=== PATIENT | male | born 1955 | race Caucasian/White ===

== ENCOUNTER 2022-03-11 23:15 | Inpatient (IN) | payer MEDICARE ==
[~2022-03-11] VITALS: Ht 170.2 cm; Wt 84.0 kg
[~2022-03-11 23:15] MED LIST: BUPR-50 PO; DOXY-354 PO; FAMO20 PO; QUET100T PO; QUET200T PO; QUET200T30 PO; SERT-158 PO; SERT-439 PO
[2022-03-11 23:30] VITALS: BP 121/86
[2022-03-11 23:59] VITALS: BP 121/86
[2022-03-12] MEDS ORDERED: OLANZapine 5 MG TABLET PO PRN
[2022-03-12] MEDS ORDERED: ACETAMINOPHEN 325 MG TABLET PO PRN (06:45)
[2022-03-12] MEDS ORDERED: LOPERAMIDE HCL 2 MG CAPSULE PO PRN (06:45)
[2022-03-12] MEDS ORDERED: MAGNESIUM HYDROXIDE SUSPENSION 30 ML UDCUP PO PRN (07:30)
[2022-03-12] MEDS ORDERED: HydrOXYzine PAMOATE 50 MG CAPSULE PO PRN (07:30)
[2022-03-12] MEDS ORDERED: GuaiFENesin/D-METHORPHAN [SUGAR-FREE] 200-20MG/10 ML SYRUP UDCUP PO PRN (07:30)
[2022-03-12] MEDS ORDERED: MAG HYDROX/AL HYDROX/SIMETH ES 30 ML SUSPENSION UDCUP PO PRN (07:30)
[2022-03-12] MEDS ORDERED: TUBERCULIN, PURIFIED PROTEIN DERIVATIVE 5 TU/0.1 ML SYRINGE ID ONE (07:30)
[2022-03-12] MEDS ORDERED: PROMETHAZINE HCL 25 MG TABLET PO PRN (07:30)
[2022-03-12] MEDS ORDERED: QUEtiapine FUMARATE 100 MG TABLET PO PRN (08:00)
[2022-03-12] MEDS: MULTIVITAMINS WITH MINERALS, THERAPEUTIC TABLET PO SCH ×2 (08:29→09:00)
[2022-03-12] MEDS: BuPROPion HCL 75 MG TABLET PO SCH ×2 (08:29→09:00)
[2022-03-12] MEDS: THIAMINE 100 MG TABLET PO SCH ×3 (08:29→17:00)
[2022-03-12] MEDS: NALTREXONE HCL 50 MG TABLET PO SCH ×2 (08:30→09:00)
[2022-03-12] MEDS: OMEGA-3/DHA/EPA/FISH OIL 1,000 MG CAPSULE PO SCH ×2 (08:30→09:00)
[2022-03-12] MEDS: DOXYCYCLINE HYCLATE 100 MG TABLET PO SCH ×3 (08:30→17:00)
[2022-03-12] MEDS: FOLIC ACID 1 MG TABLET PO SCH ×2 (08:30→09:00)
[2022-03-12] MEDS: FAMOTIDINE 20 MG TABLET PO SCH ×3 (08:30→17:00)
[2022-03-12 09:41] VITALS: BP 105/65
[2022-03-12] MEDS: LOPERAMIDE HCL 2 MG CAPSULE PO SCH ×2 (12:14→17:00)
[2022-03-12] MEDS ORDERED: PEG 3350/NA SULF,BICARB,CL/KCL 4000 ML SOLUTION PO SCH (15:30)
[2022-03-12] MEDS ORDERED: PEG 3350/NA SULF,BICARB,CL/KCL 4000 ML SOLUTION PO ONE ×2 (15:45→16:30)
[2022-03-12 16:25] VITALS: BP 95/64
[2022-03-12] MEDS: MELATONIN 5 MG TABLET PO SCH (20:37)
[2022-03-12] MEDS: QUEtiapine FUMARATE 200 MG TABLET PO SCH (20:38)
[2022-03-12] MEDS ORDERED: QUEtiapine FUMARATE 100 MG TABLET PO SCH (21:00)
[2022-03-12] MEDS ORDERED: OLANZapine 5 MG RAPDIS TABLET PO SCH (21:00)
[2022-03-13 07:56] LABS: HEMOGLOBIN A1C 5.6 % (3.8-5.6)
[2022-03-13 08:21] LABS: CHOL/HDL RATIO 3.9 (4.2-7.3); FREE T4 (FREE THYROXINE) 0.9 ng/dL (0.76-1.46); THYROID STIMULATING HORMONE 0.99 uIU/mL (0.36-3.74)
[2022-03-13] MEDS: FOLIC ACID 1 MG TABLET PO SCH (09:36)
[2022-03-13] MEDS: DOXYCYCLINE HYCLATE 100 MG TABLET PO SCH ×2 (09:36→16:03)
[2022-03-13] MEDS: MULTIVITAMINS WITH MINERALS, THERAPEUTIC TABLET PO SCH (09:36)
[2022-03-13] MEDS: OMEGA-3/DHA/EPA/FISH OIL 1,000 MG CAPSULE PO SCH (09:36)
[2022-03-13] MEDS: NALTREXONE HCL 50 MG TABLET PO SCH (09:37)
[2022-03-13] MEDS: BuPROPion HCL 75 MG TABLET PO SCH (09:37)
[2022-03-13] MEDS: THIAMINE 100 MG TABLET PO SCH ×2 (09:37→16:03)
[2022-03-13] MEDS: LOPERAMIDE HCL 2 MG CAPSULE PO SCH ×3 (09:37→16:03)
[2022-03-13] MEDS: FAMOTIDINE 20 MG TABLET PO SCH ×2 (09:37→16:03)
[2022-03-13] MEDS: QUEtiapine FUMARATE 200 MG TABLET PO SCH (20:54)
[2022-03-13] MEDS: MELATONIN 5 MG TABLET PO SCH (20:54)
[2022-03-13] MEDS: ZOLPIDEM TARTRATE 10 MG TABLET PO PRN (21:29)
[2022-03-14 08:58] VITALS: BP 106/74
[2022-03-14] MEDS: FOLIC ACID 1 MG TABLET PO SCH (09:27)
[2022-03-14] MEDS: MULTIVITAMINS WITH MINERALS, THERAPEUTIC TABLET PO SCH (09:27)
[2022-03-14] MEDS: BuPROPion HCL 75 MG TABLET PO SCH (09:27)
[2022-03-14] MEDS: FAMOTIDINE 20 MG TABLET PO SCH ×2 (09:27→17:15)
[2022-03-14] MEDS: OMEGA-3/DHA/EPA/FISH OIL 1,000 MG CAPSULE PO SCH (09:27)
[2022-03-14] MEDS: THIAMINE 100 MG TABLET PO SCH ×2 (09:28→17:15)
[2022-03-14] MEDS: NALTREXONE HCL 50 MG TABLET PO SCH (09:28)
[2022-03-14] MEDS: DOXYCYCLINE HYCLATE 100 MG TABLET PO SCH ×2 (09:28→17:15)
[2022-03-14] MEDS: LOPERAMIDE HCL 2 MG CAPSULE PO SCH ×3 (09:29→17:15)
[2022-03-14 16:00] VITALS: BP 117/61
[2022-03-14] MEDS: ZOLPIDEM TARTRATE 10 MG TABLET PO PRN (20:07)
[2022-03-14] MEDS: MELATONIN 5 MG TABLET PO SCH (20:08)
[2022-03-14] MEDS: QUEtiapine FUMARATE 200 MG TABLET PO SCH (20:08)
[2022-03-15 08:30] VITALS: BP 103/63
[2022-03-15] MEDS: NALTREXONE HCL 50 MG TABLET PO SCH (08:59)
[2022-03-15] MEDS: OMEGA-3/DHA/EPA/FISH OIL 1,000 MG CAPSULE PO SCH (08:59)
[2022-03-15] MEDS: BuPROPion HCL XL 150 MG ER TABLET PO SCH (08:59)
[2022-03-15] MEDS: DOXYCYCLINE HYCLATE 100 MG TABLET PO SCH ×2 (09:00→17:20)
[2022-03-15] MEDS: THIAMINE 100 MG TABLET PO SCH ×2 (09:00→17:20)
[2022-03-15] MEDS: FAMOTIDINE 20 MG TABLET PO SCH ×2 (09:00→17:20)
[2022-03-15] MEDS: FOLIC ACID 1 MG TABLET PO SCH (09:00)
[2022-03-15] MEDS: LOPERAMIDE HCL 2 MG CAPSULE PO SCH ×3 (09:00→17:20)
[2022-03-15] MEDS: MULTIVITAMINS WITH MINERALS, THERAPEUTIC TABLET PO SCH (09:00)
[2022-03-15 16:09] VITALS: BP 119/67
[2022-03-15] MEDS: MELATONIN 5 MG TABLET PO SCH (20:55)
[2022-03-15] MEDS: QUEtiapine FUMARATE 200 MG TABLET PO SCH (20:56)
[2022-03-16] MEDS: FOLIC ACID 1 MG TABLET PO SCH (08:34)
[2022-03-16] MEDS: MULTIVITAMINS WITH MINERALS, THERAPEUTIC TABLET PO SCH (08:34)
[2022-03-16] MEDS: OMEGA-3/DHA/EPA/FISH OIL 1,000 MG CAPSULE PO SCH (08:34)
[2022-03-16] MEDS: LOPERAMIDE HCL 2 MG CAPSULE PO SCH ×3 (08:34→18:19)
[2022-03-16] MEDS: THIAMINE 100 MG TABLET PO SCH ×2 (08:35→18:19)
[2022-03-16] MEDS: FAMOTIDINE 20 MG TABLET PO SCH ×2 (08:35→18:19)
[2022-03-16] MEDS: DOXYCYCLINE HYCLATE 100 MG TABLET PO SCH ×2 (08:35→18:19)
[2022-03-16] MEDS: BuPROPion HCL XL 150 MG ER TABLET PO SCH (08:36)
[2022-03-16] MEDS: NALTREXONE HCL 50 MG TABLET PO SCH (08:36)
[2022-03-16 09:00] VITALS: BP 91/63
[2022-03-16 16:00] VITALS: BP 117/78
[2022-03-16] MEDS: QUEtiapine FUMARATE 200 MG TABLET PO SCH (20:38)
[2022-03-16] MEDS: MELATONIN 5 MG TABLET PO SCH (20:38)
[2022-03-17 06:44] LABS: COVID AG,FIA SOURCE NASAL SWAB
[2022-03-17] MEDS: OMEGA-3/DHA/EPA/FISH OIL 1,000 MG CAPSULE PO SCH (08:57)
[2022-03-17] MEDS: FAMOTIDINE 20 MG TABLET PO SCH ×2 (08:58→16:32)
[2022-03-17] MEDS: BuPROPion HCL XL 150 MG ER TABLET PO SCH (08:58)
[2022-03-17] MEDS: NALTREXONE HCL 50 MG TABLET PO SCH (08:58)
[2022-03-17] MEDS: THIAMINE 100 MG TABLET PO SCH ×2 (08:58→16:32)
[2022-03-17] MEDS: DOXYCYCLINE HYCLATE 100 MG TABLET PO SCH ×2 (08:59→16:32)
[2022-03-17] MEDS: FOLIC ACID 1 MG TABLET PO SCH (08:59)
[2022-03-17] MEDS: MULTIVITAMINS WITH MINERALS, THERAPEUTIC TABLET PO SCH (08:59)
[2022-03-17] MEDS: LOPERAMIDE HCL 2 MG CAPSULE PO SCH ×3 (08:59→16:32)
[2022-03-17 09:22] VITALS: BP 103/71
[2022-03-17 16:00] VITALS: BP 95/58
[2022-03-17 16:30] VITALS: BP 95/58
[2022-03-17] MEDS: MELATONIN 5 MG TABLET PO SCH (20:36)
[2022-03-17] MEDS ORDERED: QUEtiapine FUMARATE 200 MG TABLET PO SCH (21:00)
[2022-03-18 08:00] VITALS: BP 117/68
[2022-03-18] MEDS: FAMOTIDINE 20 MG TABLET PO SCH ×2 (08:20→16:11)
[2022-03-18] MEDS: NALTREXONE HCL 50 MG TABLET PO SCH (08:20)
[2022-03-18] MEDS: DOXYCYCLINE HYCLATE 100 MG TABLET PO SCH ×2 (08:20→16:11)
[2022-03-18] MEDS: BuPROPion HCL XL 150 MG ER TABLET PO SCH (08:20)
[2022-03-18] MEDS: FOLIC ACID 1 MG TABLET PO SCH (08:21)
[2022-03-18] MEDS: THIAMINE 100 MG TABLET PO SCH ×2 (08:21→16:11)
[2022-03-18] MEDS: LOPERAMIDE HCL 2 MG CAPSULE PO SCH ×3 (08:21→16:11)
[2022-03-18] MEDS: OMEGA-3/DHA/EPA/FISH OIL 1,000 MG CAPSULE PO SCH (08:22)
[2022-03-18] MEDS: MULTIVITAMINS WITH MINERALS, THERAPEUTIC TABLET PO SCH (09:01)
[2022-03-18] MEDS: LORazepam 2 MG TABLET PO PRN ×2 (13:06→18:59)
[2022-03-18 16:27] VITALS: BP 117/89
[2022-03-18] MEDS: QUEtiapine FUMARATE 300 MG TABLET PO SCH (20:49)
[2022-03-18] MEDS: MELATONIN 5 MG TABLET PO SCH (20:49)
[2022-03-18] MEDS: ZOLPIDEM TARTRATE 10 MG TABLET PO PRN (20:50)
[2022-03-19 03:40] VITALS: BP 111/82
[2022-03-19] MEDS: LORazepam 2 MG TABLET PO PRN ×4 (03:45→22:00)
[2022-03-19 08:02] VITALS: BP 116/82
[2022-03-19] MEDS: OMEGA-3/DHA/EPA/FISH OIL 1,000 MG CAPSULE PO SCH (09:00)
[2022-03-19] MEDS: LOPERAMIDE HCL 2 MG CAPSULE PO SCH ×3 (09:00→16:48)
[2022-03-19] MEDS: MULTIVITAMINS WITH MINERALS, THERAPEUTIC TABLET PO SCH (09:00)
[2022-03-19] MEDS: NALTREXONE HCL 50 MG TABLET PO SCH (09:00)
[2022-03-19] MEDS: BuPROPion HCL XL 150 MG ER TABLET PO SCH (09:00)
[2022-03-19] MEDS: FAMOTIDINE 20 MG TABLET PO SCH ×2 (09:00→16:48)
[2022-03-19] MEDS: THIAMINE 100 MG TABLET PO SCH ×2 (09:00→16:48)
[2022-03-19] MEDS: FOLIC ACID 1 MG TABLET PO SCH (09:00)
[2022-03-19 17:00] VITALS: BP 114/76
[2022-03-19] MEDS: MELATONIN 5 MG TABLET PO SCH (20:36)
[2022-03-19] MEDS: QUEtiapine FUMARATE 300 MG TABLET PO SCH (20:36)
[2022-03-19] MEDS: ZOLPIDEM TARTRATE 10 MG TABLET PO PRN (22:46)
[2022-03-20 09:00] VITALS: BP 113/67
[2022-03-20] MEDS: LOPERAMIDE HCL 2 MG CAPSULE PO SCH ×3 (09:25→16:49)
[2022-03-20] MEDS: MULTIVITAMINS WITH MINERALS, THERAPEUTIC TABLET PO SCH (09:25)
[2022-03-20] MEDS: THIAMINE 100 MG TABLET PO SCH ×2 (09:25→16:14)
[2022-03-20] MEDS: FAMOTIDINE 20 MG TABLET PO SCH ×2 (09:26→16:14)
[2022-03-20] MEDS: FOLIC ACID 1 MG TABLET PO SCH (09:26)
[2022-03-20] MEDS: OMEGA-3/DHA/EPA/FISH OIL 1,000 MG CAPSULE PO SCH (09:26)
[2022-03-20] MEDS: NALTREXONE HCL 50 MG TABLET PO SCH (09:27)
[2022-03-20] MEDS: BuPROPion HCL XL 150 MG ER TABLET PO SCH (09:27)
[2022-03-20 11:26] VITALS: BP 113/67
[2022-03-20] MEDS: LORazepam 2 MG TABLET PO PRN ×2 (16:43→20:53)
[2022-03-20] MEDS ORDERED: LOPERAMIDE HCL 2 MG CAPSULE PO PRN (17:00)
[2022-03-20] MEDS: MELATONIN 5 MG TABLET PO SCH (20:52)
[2022-03-20] MEDS: QUEtiapine FUMARATE 300 MG TABLET PO SCH (20:53)
[2022-03-20] MEDS: ZOLPIDEM TARTRATE 10 MG TABLET PO PRN (23:48)
[2022-03-21 00:06] VITALS: BP 108/69
[2022-03-21 08:30] VITALS: BP 133/89
[2022-03-21] MEDS: OMEGA-3/DHA/EPA/FISH OIL 1,000 MG CAPSULE PO SCH (09:20)
[2022-03-21] MEDS: BuPROPion HCL XL 150 MG ER TABLET PO SCH (09:20)
[2022-03-21] MEDS: THIAMINE 100 MG TABLET PO SCH ×2 (09:21→16:11)
[2022-03-21] MEDS: FAMOTIDINE 20 MG TABLET PO SCH ×2 (09:22→16:11)
[2022-03-21] MEDS: NALTREXONE HCL 50 MG TABLET PO SCH (09:22)
[2022-03-21] MEDS: FOLIC ACID 1 MG TABLET PO SCH (09:22)
[2022-03-21] MEDS: MULTIVITAMINS WITH MINERALS, THERAPEUTIC TABLET PO SCH (09:24)
[2022-03-21] MEDS: IBUPROFEN 600 MG TABLET PO PRN ×2 (12:52→22:09)
[2022-03-21] MEDS: LORazepam 2 MG TABLET PO PRN (12:52)
[2022-03-21 12:59] VITALS: BP 113/69
[2022-03-21 13:59] VITALS: BP 128/72
[2022-03-21 16:33] VITALS: BP 113/97
[2022-03-21] MEDS: MELATONIN 5 MG TABLET PO SCH (20:16)
[2022-03-21] MEDS: QUEtiapine FUMARATE 300 MG TABLET PO SCH (20:16)
[2022-03-21 22:09] VITALS: BP 122/67
[2022-03-22 08:00] VITALS: BP 106/72
[2022-03-22] MEDS: NALTREXONE HCL 50 MG TABLET PO SCH (08:51)
[2022-03-22] MEDS: OMEGA-3/DHA/EPA/FISH OIL 1,000 MG CAPSULE PO SCH (08:51)
[2022-03-22] MEDS: BuPROPion HCL XL 150 MG ER TABLET PO SCH (08:52)
[2022-03-22] MEDS: MULTIVITAMINS WITH MINERALS, THERAPEUTIC TABLET PO SCH (08:52)
[2022-03-22] MEDS: FAMOTIDINE 20 MG TABLET PO SCH ×2 (08:52→16:50)
[2022-03-22] MEDS: LORazepam 2 MG TABLET PO PRN (15:55)
[2022-03-22 16:13] VITALS: BP 104/67
[2022-03-22 16:15] VITALS: BP 104/67
[2022-03-22] MEDS: MELATONIN 5 MG TABLET PO SCH (20:57)
[2022-03-22] MEDS: QUEtiapine FUMARATE 100 MG TABLET PO SCH (20:58)
[2022-03-22] MEDS: QUEtiapine FUMARATE 300 MG TABLET PO SCH (20:58)
[2022-03-22] MEDS ORDERED: QUEtiapine FUMARATE 100 MG TABLET PO SCH (21:00)
[2022-03-22] MEDS: ZOLPIDEM TARTRATE 10 MG TABLET PO PRN (21:22)
[2022-03-23 06:40] LABS: COVID AG,FIA SOURCE NASAL SWAB
[2022-03-23 08:30] VITALS: BP 95/67
[2022-03-23] MEDS: NALTREXONE HCL 50 MG TABLET PO SCH (09:20)
[2022-03-23] MEDS: OMEGA-3/DHA/EPA/FISH OIL 1,000 MG CAPSULE PO SCH (09:20)
[2022-03-23] MEDS: BuPROPion HCL XL 150 MG ER TABLET PO SCH (09:20)
[2022-03-23] MEDS: FAMOTIDINE 20 MG TABLET PO SCH ×2 (09:20→18:00)
[2022-03-23] MEDS: MULTIVITAMINS WITH MINERALS, THERAPEUTIC TABLET PO SCH (09:21)
[2022-03-23 16:15] VITALS: BP 110/76
[2022-03-23] MEDS: LORazepam 2 MG TABLET PO PRN (18:06)
[2022-03-23] MEDS: MELATONIN 5 MG TABLET PO SCH (20:04)
[2022-03-23] MEDS: QUEtiapine FUMARATE 100 MG TABLET PO SCH (20:04)
[2022-03-23] MEDS: QUEtiapine FUMARATE 300 MG TABLET PO SCH (20:04)
[2022-03-23] MEDS ORDERED: QUEtiapine FUMARATE 200 MG TABLET PO SCH (21:00)
[2022-03-24] MEDS: ZOLPIDEM TARTRATE 10 MG TABLET PO PRN (00:47)
[2022-03-24 08:00] VITALS: BP 97/65
[2022-03-24] MEDS: FAMOTIDINE 20 MG TABLET PO SCH ×2 (09:19→16:29)
[2022-03-24] MEDS: BuPROPion HCL XL 150 MG ER TABLET PO SCH (09:19)
[2022-03-24] MEDS: NALTREXONE HCL 50 MG TABLET PO SCH (09:19)
[2022-03-24] MEDS: OMEGA-3/DHA/EPA/FISH OIL 1,000 MG CAPSULE PO SCH (09:19)
[2022-03-24] MEDS: MULTIVITAMINS WITH MINERALS, THERAPEUTIC TABLET PO SCH (09:21)
[2022-03-24] MEDS: LORazepam 2 MG TABLET PO PRN (12:51)
[2022-03-24 16:00] VITALS: BP 102/68
[2022-03-24 16:31] VITALS: BP 102/68
[2022-03-24] MEDS: MELATONIN 5 MG TABLET PO SCH (20:27)
[2022-03-24] MEDS: TraZODone HCL 100 MG TABLET PO SCH (20:27)
[2022-03-24] MEDS: ZOLPIDEM TARTRATE 10 MG TABLET PO SCH (20:27)
[2022-03-24] MEDS: QUEtiapine FUMARATE 300 MG TABLET PO SCH (20:27)
[2022-03-24] MEDS ORDERED: QUEtiapine FUMARATE 200 MG TABLET PO SCH (21:00)
[2022-03-24] MEDS ORDERED: MIRTAZAPINE 15 MG TABLET PO SCH (21:00)
[2022-03-24 22:30] VITALS: BP 135/60
[2022-03-24] MEDS: IBUPROFEN 600 MG TABLET PO PRN (22:34)
[2022-03-25] MEDS: MULTIVITAMINS WITH MINERALS, THERAPEUTIC TABLET PO SCH (08:34)
[2022-03-25] MEDS: NALTREXONE HCL 50 MG TABLET PO SCH (08:35)
[2022-03-25] MEDS: OMEGA-3/DHA/EPA/FISH OIL 1,000 MG CAPSULE PO SCH (08:35)
[2022-03-25] MEDS: BuPROPion HCL XL 150 MG ER TABLET PO SCH (08:35)
[2022-03-25] MEDS: FAMOTIDINE 20 MG TABLET PO SCH ×2 (08:35→16:32)
[2022-03-25 09:26] VITALS: BP 104/69
[2022-03-25 16:08] VITALS: BP 135/62
[2022-03-25] MEDS: LORazepam 2 MG TABLET PO PRN (18:49)
[2022-03-25] MEDS: ZOLPIDEM TARTRATE 10 MG TABLET PO SCH (20:31)
[2022-03-25] MEDS: TraZODone HCL 100 MG TABLET PO SCH (20:32)
[2022-03-25] MEDS: MELATONIN 5 MG TABLET PO SCH (20:32)
[2022-03-25] MEDS: MIRTAZAPINE 15 MG TABLET PO SCH (20:34)
[2022-03-25] MEDS: QUEtiapine FUMARATE 200 MG TABLET PO SCH (20:34)
[2022-03-25] MEDS ORDERED: LURASIDONE HCL 40 MG TABLET PO SCH (21:00)
[2022-03-26] MEDS: FAMOTIDINE 20 MG TABLET PO SCH ×2 (08:16→16:10)
[2022-03-26] MEDS: MULTIVITAMINS WITH MINERALS, THERAPEUTIC TABLET PO SCH (08:16)
[2022-03-26] MEDS: NALTREXONE HCL 50 MG TABLET PO SCH (08:16)
[2022-03-26] MEDS: BuPROPion HCL XL 150 MG ER TABLET PO SCH (08:16)
[2022-03-26] MEDS: OMEGA-3/DHA/EPA/FISH OIL 1,000 MG CAPSULE PO SCH (08:16)
[2022-03-26 09:57] VITALS: BP 90/61
[2022-03-26 16:01] VITALS: BP 106/69
[2022-03-26] MEDS: LORazepam 2 MG TABLET PO PRN (16:10)
[2022-03-26] MEDS ORDERED: ESZOPICLONE 3 MG TABLET PO PRN (17:45)
[2022-03-26] MEDS: TraZODone HCL 100 MG TABLET PO SCH (20:46)
[2022-03-26] MEDS: ZOLPIDEM TARTRATE 10 MG TABLET PO SCH (20:46)
[2022-03-26] MEDS: MELATONIN 5 MG TABLET PO SCH (20:46)
[2022-03-26] MEDS: MIRTAZAPINE 15 MG TABLET PO SCH (20:46)
[2022-03-26] MEDS: QUEtiapine FUMARATE 200 MG TABLET PO SCH (20:47)
[2022-03-27 06:41] LABS: BASOPHILS % (AUTO) 0.5 % (0.0-2.0); EOSINOPHILS % (AUTO) 4.5 % (1.0-6.0); LYMPHOCYTES % (AUTO) 36.6 % (22.0-44.0); MEAN CORPUSCULAR HEMOGLOBIN 30.4 pg (26.0-34.0); MEAN CORPUSCULAR HGB CONC 32.4 G/dL (31.0-37.0); MEAN CORPUSCULAR VOLUME 94 fL (80-100); MONOCYTES # (AUTO) 0.8 K/uL (0.1-1.0); MONOCYTES % (AUTO) 14.5 % (2.0-9.0); NEUTROPHILS # (AUTO) 2.3 K/uL (1.8-7.7); NEUTROPHILS % (AUTO) 43.9 % (40.0-70.0); PLATELET COUNT (AUTO) 233 K/uL (150-450); RED BLOOD CELL COUNT(AUTO) 4.26 MIL/uL (4.50-5.90)
[2022-03-27 08:30] VITALS: BP 103/60
[2022-03-27] MEDS: FAMOTIDINE 20 MG TABLET PO SCH ×2 (08:46→16:17)
[2022-03-27] MEDS: NALTREXONE HCL 50 MG TABLET PO SCH (08:46)
[2022-03-27] MEDS: MULTIVITAMINS WITH MINERALS, THERAPEUTIC TABLET PO SCH (08:46)
[2022-03-27] MEDS: DULoxetine HCL 20 MG CAPSULE PO SCH (08:46)
[2022-03-27] MEDS: OMEGA-3/DHA/EPA/FISH OIL 1,000 MG CAPSULE PO SCH (08:46)
[2022-03-27 16:03] VITALS: BP 137/85
[2022-03-27] MEDS: MELATONIN 5 MG TABLET PO SCH (20:28)
[2022-03-27] MEDS: TraZODone HCL 100 MG TABLET PO SCH (20:28)
[2022-03-27] MEDS: QUEtiapine FUMARATE 200 MG TABLET PO SCH (20:28)
[2022-03-27] MEDS: MIRTAZAPINE 15 MG TABLET PO SCH (20:28)
[2022-03-27] MEDS: ZOLPIDEM TARTRATE 10 MG TABLET PO SCH (20:29)
[2022-03-28] MEDS: OMEGA-3/DHA/EPA/FISH OIL 1,000 MG CAPSULE PO SCH (08:57)
[2022-03-28] MEDS: MULTIVITAMINS WITH MINERALS, THERAPEUTIC TABLET PO SCH (08:57)
[2022-03-28] MEDS: DULoxetine HCL 20 MG CAPSULE PO SCH (08:58)
[2022-03-28] MEDS: NALTREXONE HCL 50 MG TABLET PO SCH (08:58)
[2022-03-28] MEDS: FAMOTIDINE 20 MG TABLET PO SCH ×2 (08:58→17:22)
[2022-03-28] MEDS ORDERED: CloZAPine 25 MG TABLET PO SCH (09:00)
[2022-03-28 10:04] VITALS: BP 96/61
[2022-03-28 16:31] VITALS: BP 110/71
[2022-03-28] MEDS: MELATONIN 5 MG TABLET PO SCH (20:56)
[2022-03-28] MEDS: TraZODone HCL 100 MG TABLET PO SCH (20:56)
[2022-03-28] MEDS: ZOLPIDEM TARTRATE 10 MG TABLET PO SCH (20:57)
[2022-03-28] MEDS: MIRTAZAPINE 15 MG TABLET PO SCH (20:57)
[2022-03-28] MEDS: QUEtiapine FUMARATE 200 MG TABLET PO SCH (20:57)
[2022-03-29 09:00] VITALS: BP 80/52
[2022-03-29] MEDS: OMEGA-3/DHA/EPA/FISH OIL 1,000 MG CAPSULE PO SCH (09:00)
[2022-03-29] MEDS: MULTIVITAMINS WITH MINERALS, THERAPEUTIC TABLET PO SCH (09:00)
[2022-03-29] MEDS: NALTREXONE HCL 50 MG TABLET PO SCH (09:01)
[2022-03-29] MEDS: DULoxetine HCL 20 MG CAPSULE PO SCH (09:01)
[2022-03-29] MEDS: FAMOTIDINE 20 MG TABLET PO SCH ×2 (09:02→16:13)
[2022-03-29] MEDS ORDERED: CloZAPine 25 MG TABLET PO SCH ×3 (14:32→21:00)
[2022-03-29 16:04] VITALS: BP 95/58
[2022-03-29] MEDS: TraZODone HCL 100 MG TABLET PO SCH (20:12)
[2022-03-29] MEDS: MELATONIN 5 MG TABLET PO SCH (20:13)
[2022-03-29] MEDS: QUEtiapine FUMARATE 200 MG TABLET PO SCH (20:13)
[2022-03-29] MEDS: MIRTAZAPINE 15 MG TABLET PO SCH (20:13)
[2022-03-29] MEDS: ZOLPIDEM TARTRATE 10 MG TABLET PO SCH (20:13)
[2022-03-30 07:54] LABS: COVID AG,FIA SOURCE NASAL SWAB
[2022-03-30] MEDS: MULTIVITAMINS WITH MINERALS, THERAPEUTIC TABLET PO SCH (08:19)
[2022-03-30] MEDS: OMEGA-3/DHA/EPA/FISH OIL 1,000 MG CAPSULE PO SCH (08:20)
[2022-03-30] MEDS: NALTREXONE HCL 50 MG TABLET PO SCH (08:21)
[2022-03-30] MEDS: FAMOTIDINE 20 MG TABLET PO SCH ×2 (08:21→16:32)
[2022-03-30] MEDS: DULoxetine HCL 20 MG CAPSULE PO SCH (08:22)
[2022-03-30 09:00] VITALS: BP 93/62
[2022-03-30] MEDS ORDERED: CloZAPine 25 MG TABLET PO SCH ×4 (09:00→21:00)
[2022-03-30 16:16] VITALS: BP 98/63
[2022-03-30] MEDS: ZOLPIDEM TARTRATE 10 MG TABLET PO SCH (21:15)
[2022-03-30] MEDS: QUEtiapine FUMARATE 200 MG TABLET PO SCH (21:16)
[2022-03-30] MEDS: TraZODone HCL 100 MG TABLET PO SCH (21:16)
[2022-03-30] MEDS: MELATONIN 5 MG TABLET PO SCH (21:16)
[2022-03-30] MEDS: SENNA 187 MG TABLET PO SCH (21:17)
[2022-03-30] MEDS: MIRTAZAPINE 15 MG TABLET PO SCH (21:18)
[2022-03-31] MEDS: FAMOTIDINE 20 MG TABLET PO SCH ×2 (08:00→16:30)
[2022-03-31] MEDS: OMEGA-3/DHA/EPA/FISH OIL 1,000 MG CAPSULE PO SCH (08:00)
[2022-03-31] MEDS: DULoxetine HCL 20 MG CAPSULE PO SCH (08:01)
[2022-03-31] MEDS: NALTREXONE HCL 50 MG TABLET PO SCH (08:01)
[2022-03-31] MEDS: MULTIVITAMINS WITH MINERALS, THERAPEUTIC TABLET PO SCH (08:02)
[2022-03-31] MEDS ORDERED: CloZAPine 25 MG TABLET PO SCH ×3 (09:00→21:00)
[2022-03-31 10:18] VITALS: BP 98/60
[2022-03-31 16:25] VITALS: BP 88/60
[2022-03-31] MEDS: MELATONIN 5 MG TABLET PO SCH (20:17)
[2022-03-31] MEDS: ZOLPIDEM TARTRATE 10 MG TABLET PO SCH (20:17)
[2022-03-31] MEDS: TraZODone HCL 100 MG TABLET PO SCH (20:17)
[2022-03-31] MEDS: SENNA 187 MG TABLET PO SCH (20:18)
[2022-03-31] MEDS: MIRTAZAPINE 15 MG TABLET PO SCH (20:18)
[2022-03-31] MEDS: QUEtiapine FUMARATE 200 MG TABLET PO SCH (20:18)
[2022-04-01 08:31] VITALS: BP 108/74
[2022-04-01] MEDS: NALTREXONE HCL 50 MG TABLET PO SCH (08:36)
[2022-04-01] MEDS: DULoxetine HCL 20 MG CAPSULE PO SCH (08:36)
[2022-04-01] MEDS: OMEGA-3/DHA/EPA/FISH OIL 1,000 MG CAPSULE PO SCH (08:36)
[2022-04-01] MEDS: FAMOTIDINE 20 MG TABLET PO SCH ×2 (08:36→16:34)
[2022-04-01] MEDS: MULTIVITAMINS WITH MINERALS, THERAPEUTIC TABLET PO SCH (08:37)
[2022-04-01] MEDS: CloZAPine 25 MG TABLET PO SCH ×2 (08:38→20:40)
[2022-04-01 16:04] VITALS: BP 89/61
[2022-04-01] MEDS: ZOLPIDEM TARTRATE 10 MG TABLET PO SCH (20:38)
[2022-04-01] MEDS: QUEtiapine FUMARATE 100 MG TABLET PO SCH (20:39)
[2022-04-01] MEDS: SENNA 187 MG TABLET PO SCH (20:39)
[2022-04-01] MEDS: TraZODone HCL 100 MG TABLET PO SCH (20:39)
[2022-04-01] MEDS: MELATONIN 5 MG TABLET PO SCH (20:39)
[2022-04-01] MEDS: MIRTAZAPINE 15 MG TABLET PO SCH (20:40)
[2022-04-02 08:40] VITALS: BP 99/69
[2022-04-02] MEDS: MULTIVITAMINS WITH MINERALS, THERAPEUTIC TABLET PO SCH (08:47)
[2022-04-02] MEDS: OMEGA-3/DHA/EPA/FISH OIL 1,000 MG CAPSULE PO SCH (08:47)
[2022-04-02] MEDS: NALTREXONE HCL 50 MG TABLET PO SCH (08:47)
[2022-04-02] MEDS: FAMOTIDINE 20 MG TABLET PO SCH ×2 (08:47→16:35)
[2022-04-02] MEDS: DULoxetine HCL 20 MG CAPSULE PO SCH (08:47)
[2022-04-02] MEDS: CloZAPine 25 MG TABLET PO SCH ×2 (08:48→20:26)
[2022-04-02] MEDS ORDERED: CloZAPine 25 MG TABLET PO SCH (09:00)
[2022-04-02 16:13] VITALS: BP 93/62
[2022-04-02] MEDS: ZOLPIDEM TARTRATE 10 MG TABLET PO SCH (20:26)
[2022-04-02] MEDS: MIRTAZAPINE 15 MG TABLET PO SCH (20:26)
[2022-04-02] MEDS: MELATONIN 5 MG TABLET PO SCH (20:26)
[2022-04-02] MEDS: TraZODone HCL 100 MG TABLET PO SCH (20:26)
[2022-04-02] MEDS: QUEtiapine FUMARATE 100 MG TABLET PO SCH (20:27)
[2022-04-02] MEDS: SENNA 187 MG TABLET PO SCH (20:27)
[2022-04-02] MEDS ORDERED: CloZAPine 100 MG TABLET PO SCH (21:00)
[2022-04-03] VITALS (8 sets, daily range): BP systolic 96–105; BP diastolic 62–71
[2022-04-03 06:23] LABS: BASOPHILS % (AUTO) 0.6 % (0.0-2.0); HEMATOCRIT 41.1 % (41-53); HEMOGLOBIN 13.7 g/dL (13.5-17.5); LYMPHOCYTES # (AUTO) 1.7 K/uL (1.0-4.8); MEAN CORPUSCULAR HEMOGLOBIN 30.9 pg (26.0-34.0); MEAN CORPUSCULAR HGB CONC 33.4 G/dL (31.0-37.0); MEAN CORPUSCULAR VOLUME 93 fL (80-100); MONOCYTES # (AUTO) 0.9 K/uL (0.1-1.0); MONOCYTES % (AUTO) 15.4 % (2.0-9.0); NEUTROPHILS # (AUTO) 2.9 K/uL (1.8-7.7); PLATELET COUNT (AUTO) 191 K/uL (150-450); RED BLOOD CELL COUNT(AUTO) 4.45 MIL/uL (4.50-5.90)
[2022-04-03] MEDS: MULTIVITAMINS WITH MINERALS, THERAPEUTIC TABLET PO SCH (08:19)
[2022-04-03] MEDS: FAMOTIDINE 20 MG TABLET PO SCH ×2 (08:22→16:48)
[2022-04-03] MEDS: OMEGA-3/DHA/EPA/FISH OIL 1,000 MG CAPSULE PO SCH (08:22)
[2022-04-03] MEDS: DULoxetine HCL 30 MG CAPSULE PO SCH (08:23)
[2022-04-03] MEDS: NALTREXONE HCL 50 MG TABLET PO SCH (08:23)
[2022-04-03] MEDS ORDERED: CloZAPine 25 MG TABLET PO SCH ×2 (09:00)
[2022-04-03] MEDS: ZOLPIDEM TARTRATE 10 MG TABLET PO SCH (20:36)
[2022-04-03] MEDS: MIRTAZAPINE 15 MG TABLET PO SCH (20:36)
[2022-04-03] MEDS: SENNA 187 MG TABLET PO SCH (20:37)
[2022-04-03] MEDS: MELATONIN 5 MG TABLET PO SCH (20:37)
[2022-04-03] MEDS: TraZODone HCL 100 MG TABLET PO SCH (20:37)
[2022-04-03] MEDS: QUEtiapine FUMARATE 100 MG TABLET PO SCH (20:37)
[2022-04-03] MEDS ORDERED: CloZAPine 100 MG TABLET PO SCH ×2 (21:00)
[2022-04-04 08:00] VITALS: BP 95/65
[2022-04-04] MEDS: MULTIVITAMINS WITH MINERALS, THERAPEUTIC TABLET PO SCH (08:51)
[2022-04-04] MEDS: FAMOTIDINE 20 MG TABLET PO SCH ×2 (08:52→16:03)
[2022-04-04] MEDS: OMEGA-3/DHA/EPA/FISH OIL 1,000 MG CAPSULE PO SCH (08:52)
[2022-04-04] MEDS: NALTREXONE HCL 50 MG TABLET PO SCH (08:52)
[2022-04-04] MEDS: DULoxetine HCL 30 MG CAPSULE PO SCH (08:53)
[2022-04-04] MEDS ORDERED: CloZAPine 25 MG TABLET PO SCH ×2 (09:00)
[2022-04-04 16:10] VITALS: BP 97/66
[2022-04-04] MEDS: TraZODone HCL 100 MG TABLET PO SCH (20:38)
[2022-04-04] MEDS: MELATONIN 5 MG TABLET PO SCH (20:38)
[2022-04-04] MEDS: ZOLPIDEM TARTRATE 10 MG TABLET PO SCH (20:38)
[2022-04-04] MEDS: MIRTAZAPINE 15 MG TABLET PO SCH (20:39)
[2022-04-04] MEDS: SENNA 187 MG TABLET PO SCH (20:39)
[2022-04-04] MEDS: QUEtiapine FUMARATE 100 MG TABLET PO SCH (20:39)
[2022-04-04] MEDS ORDERED: CloZAPine 100 MG TABLET PO SCH ×2 (21:00)
[2022-04-05 08:00] VITALS: BP 129/94
[2022-04-05] MEDS ORDERED: CloZAPine 25 MG TABLET PO SCH (09:00)
[2022-04-05] MEDS ORDERED: CloZAPine 100 MG TABLET PO SCH ×2 (09:00→21:00)
[2022-04-05] MEDS: OMEGA-3/DHA/EPA/FISH OIL 1,000 MG CAPSULE PO SCH (10:29)
[2022-04-05] MEDS: NALTREXONE HCL 50 MG TABLET PO SCH (10:29)
[2022-04-05] MEDS: FAMOTIDINE 20 MG TABLET PO SCH ×2 (10:29→17:15)
[2022-04-05] MEDS: DULoxetine HCL 30 MG CAPSULE PO SCH (10:29)
[2022-04-05] MEDS: MULTIVITAMINS WITH MINERALS, THERAPEUTIC TABLET PO SCH (10:31)
[2022-04-05 16:00] VITALS: BP 107/65
[2022-04-05] MEDS: ZOLPIDEM TARTRATE 10 MG TABLET PO SCH (20:59)
[2022-04-05] MEDS ORDERED: QUEtiapine FUMARATE 25 MG TABLET PO SCH (21:00)
[2022-04-05] MEDS: TraZODone HCL 100 MG TABLET PO SCH (21:01)
[2022-04-05] MEDS: MIRTAZAPINE 15 MG TABLET PO SCH (21:02)
[2022-04-05] MEDS: MELATONIN 5 MG TABLET PO SCH (21:02)
[2022-04-05] MEDS: SENNA 187 MG TABLET PO SCH (21:03)
[2022-04-06 07:43] LABS: COVID AG,FIA SOURCE NASAL SWAB
[2022-04-06 08:15] VITALS: BP 104/68
[2022-04-06] MEDS: FAMOTIDINE 20 MG TABLET PO SCH ×2 (09:02→17:00)
[2022-04-06] MEDS: NALTREXONE HCL 50 MG TABLET PO SCH (09:03)
[2022-04-06] MEDS: DULoxetine HCL 20 MG CAPSULE PO SCH (09:03)
[2022-04-06] MEDS: OMEGA-3/DHA/EPA/FISH OIL 1,000 MG CAPSULE PO SCH (09:03)
[2022-04-06] MEDS: MULTIVITAMINS WITH MINERALS, THERAPEUTIC TABLET PO SCH (09:13)
[2022-04-06] MEDS: CloZAPine 100 MG TABLET PO SCH ×2 (09:14→20:44)
[2022-04-06 16:00] VITALS: BP 102/66
[2022-04-06] MEDS: ZOLPIDEM TARTRATE 10 MG TABLET PO SCH (20:43)
[2022-04-06] MEDS: MELATONIN 5 MG TABLET PO SCH (20:44)
[2022-04-06] MEDS: TraZODone HCL 100 MG TABLET PO SCH (20:44)
[2022-04-06] MEDS: SENNA 187 MG TABLET PO SCH (20:45)
[2022-04-06] MEDS: MIRTAZAPINE 15 MG TABLET PO SCH (20:45)
[2022-04-07] MEDS: MULTIVITAMINS WITH MINERALS, THERAPEUTIC TABLET PO SCH (08:47)
[2022-04-07] MEDS: CloZAPine 100 MG TABLET PO SCH ×2 (08:47→20:52)
[2022-04-07] MEDS: OMEGA-3/DHA/EPA/FISH OIL 1,000 MG CAPSULE PO SCH (08:48)
[2022-04-07] MEDS: FAMOTIDINE 20 MG TABLET PO SCH ×2 (08:49→16:03)
[2022-04-07] MEDS: NALTREXONE HCL 50 MG TABLET PO SCH (08:49)
[2022-04-07] MEDS: DULoxetine HCL 20 MG CAPSULE PO SCH (08:50)
[2022-04-07 09:00] VITALS: BP 116/69
[2022-04-07] MEDS ORDERED: CloZAPine 25 MG TABLET PO SCH (09:00)
[2022-04-07 16:08] VITALS: BP 107/71
[2022-04-07] MEDS: SENNA 187 MG TABLET PO SCH (20:51)
[2022-04-07] MEDS: ZOLPIDEM TARTRATE 10 MG TABLET PO SCH (20:51)
[2022-04-07] MEDS: MELATONIN 5 MG TABLET PO SCH (20:52)
[2022-04-07] MEDS: TraZODone HCL 100 MG TABLET PO SCH (20:53)
[2022-04-07] MEDS: MIRTAZAPINE 15 MG TABLET PO SCH (20:53)
[2022-04-07] MEDS ORDERED: CloZAPine 100 MG TABLET PO SCH (21:00)
[2022-04-08] MEDS: MULTIVITAMINS WITH MINERALS, THERAPEUTIC TABLET PO SCH (08:42)
[2022-04-08] MEDS: OMEGA-3/DHA/EPA/FISH OIL 1,000 MG CAPSULE PO SCH (08:44)
[2022-04-08] MEDS: FAMOTIDINE 20 MG TABLET PO SCH ×2 (08:45→16:46)
[2022-04-08] MEDS: DULoxetine HCL 20 MG CAPSULE PO SCH (08:46)
[2022-04-08] MEDS: NALTREXONE HCL 50 MG TABLET PO SCH (08:46)
[2022-04-08 09:00] VITALS: BP 81/59
[2022-04-08] MEDS ORDERED: CloZAPine 25 MG TABLET PO SCH ×2 (09:00)
[2022-04-08 16:00] VITALS: BP 98/66
[2022-04-08] MEDS: ZOLPIDEM TARTRATE 10 MG TABLET PO SCH (20:52)
[2022-04-08] MEDS: SENNA 187 MG TABLET PO SCH (20:53)
[2022-04-08] MEDS: TraZODone HCL 100 MG TABLET PO SCH (20:53)
[2022-04-08] MEDS: MELATONIN 5 MG TABLET PO SCH (20:53)
[2022-04-08] MEDS: MIRTAZAPINE 15 MG TABLET PO SCH (20:54)
[2022-04-08] MEDS ORDERED: CloZAPine 100 MG TABLET PO SCH ×2 (21:00)
[2022-04-09 08:40] VITALS: BP 97/62
[2022-04-09] MEDS: FAMOTIDINE 20 MG TABLET PO SCH ×2 (08:46→16:46)
[2022-04-09] MEDS: MULTIVITAMINS WITH MINERALS, THERAPEUTIC TABLET PO SCH (08:46)
[2022-04-09] MEDS: DULoxetine HCL 60 MG CAPSULE PO SCH (08:46)
[2022-04-09] MEDS: OMEGA-3/DHA/EPA/FISH OIL 1,000 MG CAPSULE PO SCH (08:47)
[2022-04-09] MEDS: NALTREXONE HCL 50 MG TABLET PO SCH (08:47)
[2022-04-09] MEDS ORDERED: CloZAPine 100 MG TABLET PO SCH ×3 (09:00→21:00)
[2022-04-09] MEDS ORDERED: CloZAPine 25 MG TABLET PO SCH (09:00)
[2022-04-09 16:00] VITALS: BP 110/79
[2022-04-09] MEDS: ZOLPIDEM TARTRATE 10 MG TABLET PO SCH (20:14)
[2022-04-09] MEDS: SENNA 187 MG TABLET PO SCH (20:14)
[2022-04-09] MEDS: TraZODone HCL 100 MG TABLET PO SCH (20:14)
[2022-04-09] MEDS: MIRTAZAPINE 15 MG TABLET PO SCH (20:15)
[2022-04-09] MEDS: MELATONIN 5 MG TABLET PO SCH (20:16)
[2022-04-10 08:08] LABS: BASOPHILS % (AUTO) 0.7 % (0.0-2.0); EOSINOPHILS % (AUTO) 6.1 % (1.0-6.0); HEMATOCRIT 40.1 % (41-53); HEMOGLOBIN 13.6 g/dL (13.5-17.5); LYMPHOCYTES # (AUTO) 1.8 K/uL (1.0-4.8); LYMPHOCYTES % (AUTO) 35.5 % (22.0-44.0); MEAN CORPUSCULAR HGB CONC 33.9 G/dL (31.0-37.0); MEAN CORPUSCULAR VOLUME 91 fL (80-100); MONOCYTES # (AUTO) 0.7 K/uL (0.1-1.0); MONOCYTES % (AUTO) 13.2 % (2.0-9.0); NEUTROPHILS # (AUTO) 2.3 K/uL (1.8-7.7); NEUTROPHILS % (AUTO) 44.5 % (40.0-70.0); PLATELET COUNT (AUTO) 157 K/uL (150-450); RED BLOOD CELL COUNT(AUTO) 4.38 MIL/uL (4.50-5.90); RED CELL DISTRIBUTION WIDTH 13.9 % (11.5-14.5)
[2022-04-10 09:37] VITALS: BP 106/72
[2022-04-10] MEDS: OMEGA-3/DHA/EPA/FISH OIL 1,000 MG CAPSULE PO SCH (10:06)
[2022-04-10] MEDS: MULTIVITAMINS WITH MINERALS, THERAPEUTIC TABLET PO SCH (10:06)
[2022-04-10] MEDS: NALTREXONE HCL 50 MG TABLET PO SCH (10:06)
[2022-04-10] MEDS: FAMOTIDINE 20 MG TABLET PO SCH ×2 (10:06→16:08)
[2022-04-10] MEDS: DULoxetine HCL 60 MG CAPSULE PO SCH (10:06)
[2022-04-10] MEDS: CloZAPine 100 MG TABLET PO SCH ×2 (10:08→21:51)
[2022-04-10 17:01] VITALS: BP 93/64
[2022-04-10] MEDS: GABAPENTIN 300 MG CAPSULE PO PRN (18:39)
[2022-04-10] MEDS: ZOLPIDEM TARTRATE 10 MG TABLET PO SCH (21:50)
[2022-04-10] MEDS: MELATONIN 5 MG TABLET PO SCH (21:51)
[2022-04-10] MEDS: TraZODone HCL 100 MG TABLET PO SCH (21:51)
[2022-04-10] MEDS: SENNA 187 MG TABLET PO SCH (21:51)
[2022-04-10] MEDS: MIRTAZAPINE 15 MG TABLET PO SCH (21:52)
[2022-04-10 22:24] VITALS: BP 108/76
[2022-04-11 08:00] VITALS: BP 106/71
[2022-04-11] MEDS: DULoxetine HCL 60 MG CAPSULE PO SCH (08:46)
[2022-04-11] MEDS: OMEGA-3/DHA/EPA/FISH OIL 1,000 MG CAPSULE PO SCH (08:46)
[2022-04-11] MEDS: NALTREXONE HCL 50 MG TABLET PO SCH (08:47)
[2022-04-11] MEDS: FAMOTIDINE 20 MG TABLET PO SCH ×2 (08:48→16:04)
[2022-04-11] MEDS: CloZAPine 100 MG TABLET PO SCH ×2 (08:48→20:08)
[2022-04-11] MEDS: MULTIVITAMINS WITH MINERALS, THERAPEUTIC TABLET PO SCH (08:48)
[2022-04-11] MEDS: ZOLPIDEM TARTRATE 10 MG TABLET PO SCH (20:07)
[2022-04-11] MEDS: MELATONIN 5 MG TABLET PO SCH (20:07)
[2022-04-11] MEDS: MIRTAZAPINE 15 MG TABLET PO SCH (20:07)
[2022-04-11] MEDS: TraZODone HCL 100 MG TABLET PO SCH (20:07)
[2022-04-11] MEDS: SENNA 187 MG TABLET PO SCH (20:07)
[2022-04-12] MEDS: NALTREXONE HCL 50 MG TABLET PO SCH (07:48)
[2022-04-12] MEDS: OMEGA-3/DHA/EPA/FISH OIL 1,000 MG CAPSULE PO SCH (07:48)
[2022-04-12] MEDS: DULoxetine HCL 60 MG CAPSULE PO SCH (07:48)
[2022-04-12] MEDS: FAMOTIDINE 20 MG TABLET PO SCH ×2 (07:48→17:27)
[2022-04-12] MEDS: MULTIVITAMINS WITH MINERALS, THERAPEUTIC TABLET PO SCH (07:49)
[2022-04-12] MEDS: CloZAPine 100 MG TABLET PO SCH ×2 (07:50→20:38)
[2022-04-12 08:00] VITALS: BP 109/63
[2022-04-12] MEDS: IBUPROFEN 600 MG TABLET PO PRN (15:49)
[2022-04-12] MEDS: GABAPENTIN 300 MG CAPSULE PO PRN (15:50)
[2022-04-12 16:55] VITALS: BP 119/87
[2022-04-12] MEDS: ZOLPIDEM TARTRATE 10 MG TABLET PO SCH (20:37)
[2022-04-12] MEDS: SENNA 187 MG TABLET PO SCH (20:38)
[2022-04-12] MEDS: MELATONIN 5 MG TABLET PO SCH (20:38)
[2022-04-12] MEDS: MIRTAZAPINE 15 MG TABLET PO SCH (20:38)
[2022-04-12] MEDS: TraZODone HCL 100 MG TABLET PO SCH (20:38)
[2022-04-13] VITALS (8 sets, daily range): BP systolic 107–126; BP diastolic 70–88
[2022-04-13 07:46] LABS: COVID AG,FIA SOURCE NASAL SWAB
[2022-04-13] MEDS: DULoxetine HCL 60 MG CAPSULE PO SCH (08:59)
[2022-04-13] MEDS: OMEGA-3/DHA/EPA/FISH OIL 1,000 MG CAPSULE PO SCH (08:59)
[2022-04-13] MEDS: NALTREXONE HCL 50 MG TABLET PO SCH (08:59)
[2022-04-13] MEDS: FAMOTIDINE 20 MG TABLET PO SCH ×2 (08:59→16:08)
[2022-04-13] MEDS: MULTIVITAMINS WITH MINERALS, THERAPEUTIC TABLET PO SCH (09:00)
[2022-04-13] MEDS: MELATONIN 5 MG TABLET PO SCH (20:24)
[2022-04-13] MEDS: TraZODone HCL 100 MG TABLET PO SCH (20:24)
[2022-04-13] MEDS: MIRTAZAPINE 15 MG TABLET PO SCH (20:25)
[2022-04-13] MEDS: SENNA 187 MG TABLET PO SCH (20:25)
[2022-04-13] MEDS: CloZAPine 100 MG TABLET PO SCH (20:25)
[2022-04-13] MEDS: ZOLPIDEM TARTRATE 10 MG TABLET PO SCH (20:25)
[2022-04-14] VITALS (7 sets, daily range): BP systolic 98–122; BP diastolic 64–82
[2022-04-14] MEDS: DULoxetine HCL 60 MG CAPSULE PO SCH (08:51)
[2022-04-14] MEDS: FAMOTIDINE 20 MG TABLET PO SCH ×2 (08:51→16:14)
[2022-04-14] MEDS: NALTREXONE HCL 50 MG TABLET PO SCH (08:51)
[2022-04-14] MEDS: OMEGA-3/DHA/EPA/FISH OIL 1,000 MG CAPSULE PO SCH (08:51)
[2022-04-14] MEDS: MULTIVITAMINS WITH MINERALS, THERAPEUTIC TABLET PO SCH (08:52)
[2022-04-14] MEDS: GABAPENTIN 300 MG CAPSULE PO PRN (18:15)
[2022-04-14] MEDS: SENNA 187 MG TABLET PO SCH (20:44)
[2022-04-14] MEDS: MIRTAZAPINE 15 MG TABLET PO SCH (20:44)
[2022-04-14] MEDS: CloZAPine 100 MG TABLET PO SCH (20:44)
[2022-04-14] MEDS: ZOLPIDEM TARTRATE 10 MG TABLET PO SCH (20:45)
[2022-04-14] MEDS: TraZODone HCL 100 MG TABLET PO SCH (20:45)
[2022-04-14] MEDS: MELATONIN 5 MG TABLET PO SCH (20:45)
[2022-04-15 08:06] VITALS: BP 107/75
[2022-04-15] MEDS: NALTREXONE HCL 50 MG TABLET PO SCH (08:35)
[2022-04-15] MEDS: FAMOTIDINE 20 MG TABLET PO SCH ×2 (08:35→16:07)
[2022-04-15] MEDS: MULTIVITAMINS WITH MINERALS, THERAPEUTIC TABLET PO SCH (08:35)
[2022-04-15] MEDS: OMEGA-3/DHA/EPA/FISH OIL 1,000 MG CAPSULE PO SCH (08:35)
[2022-04-15] MEDS: DULoxetine HCL 20 MG CAPSULE PO SCH (08:36)
[2022-04-15 16:02] VITALS: BP 102/68
[2022-04-15] MEDS: GABAPENTIN 300 MG CAPSULE PO PRN (18:55)
[2022-04-15] MEDS: ZOLPIDEM TARTRATE 10 MG TABLET PO SCH (20:56)
[2022-04-15] MEDS: CloZAPine 100 MG TABLET PO SCH (20:56)
[2022-04-15] MEDS: SENNA 187 MG TABLET PO SCH (20:56)
[2022-04-15] MEDS: TraZODone HCL 100 MG TABLET PO SCH (20:57)
[2022-04-15] MEDS: MELATONIN 5 MG TABLET PO SCH (20:57)
[2022-04-15] MEDS: MIRTAZAPINE 15 MG TABLET PO SCH (20:57)
[2022-04-16 08:51] VITALS: BP 134/86
[2022-04-16] MEDS: MULTIVITAMINS WITH MINERALS, THERAPEUTIC TABLET PO SCH (09:16)
[2022-04-16] MEDS: NALTREXONE HCL 50 MG TABLET PO SCH (09:16)
[2022-04-16] MEDS: FAMOTIDINE 20 MG TABLET PO SCH ×2 (09:16→16:32)
[2022-04-16] MEDS: DULoxetine HCL 20 MG CAPSULE PO SCH (09:17)
[2022-04-16] MEDS: OMEGA-3/DHA/EPA/FISH OIL 1,000 MG CAPSULE PO SCH (09:17)
[2022-04-16 16:10] VITALS: BP 91/61
[2022-04-16] MEDS: GABAPENTIN 300 MG CAPSULE PO PRN (18:01)
[2022-04-16] MEDS: MIRTAZAPINE 15 MG TABLET PO SCH (20:30)
[2022-04-16] MEDS: SENNA 187 MG TABLET PO SCH (20:30)
[2022-04-16] MEDS: TraZODone HCL 100 MG TABLET PO SCH (20:30)
[2022-04-16] MEDS: ZOLPIDEM TARTRATE 10 MG TABLET PO SCH (20:30)
[2022-04-16] MEDS: MELATONIN 5 MG TABLET PO SCH (20:31)
[2022-04-16] MEDS: CloZAPine 100 MG TABLET PO SCH (20:31)
[2022-04-17 05:59] LABS: BASOPHILS % (AUTO) 0.3 % (0.0-2.0); EOSINOPHILS % (AUTO) 3.7 % (1.0-6.0); HEMATOCRIT 36.9 % (41-53); HEMOGLOBIN 12.4 g/dL (13.5-17.5); LYMPHOCYTES # (AUTO) 1.8 K/uL (1.0-4.8); MEAN CORPUSCULAR HEMOGLOBIN 30.7 pg (26.0-34.0); MEAN CORPUSCULAR HGB CONC 33.7 G/dL (31.0-37.0); MEAN CORPUSCULAR VOLUME 91 fL (80-100); MONOCYTES # (AUTO) 0.8 K/uL (0.1-1.0); MONOCYTES % (AUTO) 10.9 % (2.0-9.0); NEUTROPHILS # (AUTO) 4.6 K/uL (1.8-7.7); NEUTROPHILS % (AUTO) 61.1 % (40.0-70.0); PLATELET COUNT (AUTO) 157 K/uL (150-450); RED BLOOD CELL COUNT(AUTO) 4.05 MIL/uL (4.50-5.90); RED CELL DISTRIBUTION WIDTH 13.5 % (11.5-14.5)
[2022-04-17 09:00] VITALS: BP 142/99
[2022-04-17] MEDS: FAMOTIDINE 20 MG TABLET PO SCH ×2 (09:09→16:09)
[2022-04-17] MEDS: NALTREXONE HCL 50 MG TABLET PO SCH (09:10)
[2022-04-17] MEDS: OMEGA-3/DHA/EPA/FISH OIL 1,000 MG CAPSULE PO SCH (09:10)
[2022-04-17] MEDS: DULoxetine HCL 30 MG CAPSULE PO SCH (09:10)
[2022-04-17] MEDS: MULTIVITAMINS WITH MINERALS, THERAPEUTIC TABLET PO SCH (09:13)
[2022-04-17 18:47] VITALS: BP 98/64
[2022-04-17] MEDS: SENNOSIDES 8.6 MG TABLET PO SCH (20:47)
[2022-04-17] MEDS: MELATONIN 5 MG TABLET PO SCH (20:48)
[2022-04-17] MEDS: MIRTAZAPINE 15 MG TABLET PO SCH (20:48)
[2022-04-17] MEDS: CloZAPine 100 MG TABLET PO SCH (20:48)
[2022-04-17] MEDS: ZOLPIDEM TARTRATE 10 MG TABLET PO SCH (20:48)
[2022-04-17] MEDS: TraZODone HCL 100 MG TABLET PO SCH (20:49)
[2022-04-18 08:31] VITALS: BP 142/102
[2022-04-18] MEDS: FAMOTIDINE 20 MG TABLET PO SCH ×2 (08:41→16:20)
[2022-04-18] MEDS: OMEGA-3/DHA/EPA/FISH OIL 1,000 MG CAPSULE PO SCH (08:41)
[2022-04-18] MEDS: NALTREXONE HCL 50 MG TABLET PO SCH (08:42)
[2022-04-18] MEDS: DULoxetine HCL 30 MG CAPSULE PO SCH (08:42)
[2022-04-18] MEDS: MULTIVITAMINS WITH MINERALS, THERAPEUTIC TABLET PO SCH (08:43)
[2022-04-18 17:10] VITALS: BP 138/88
[2022-04-18] MEDS: SENNOSIDES 8.6 MG TABLET PO SCH (21:10)
[2022-04-18] MEDS: MIRTAZAPINE 15 MG TABLET PO SCH (21:11)
[2022-04-18] MEDS: CloZAPine 100 MG TABLET PO SCH (21:11)
[2022-04-18] MEDS: TraZODone HCL 100 MG TABLET PO SCH (21:11)
[2022-04-18] MEDS: MELATONIN 5 MG TABLET PO SCH (21:13)
[2022-04-18 21:23] VITALS: BP 139/78
[2022-04-19] MEDS: FAMOTIDINE 20 MG TABLET PO SCH ×2 (08:37→16:11)
[2022-04-19] MEDS: MULTIVITAMINS WITH MINERALS, THERAPEUTIC TABLET PO SCH (08:37)
[2022-04-19] MEDS: OMEGA-3/DHA/EPA/FISH OIL 1,000 MG CAPSULE PO SCH (08:37)
[2022-04-19] MEDS: NALTREXONE HCL 50 MG TABLET PO SCH (08:37)
[2022-04-19] MEDS: DULoxetine HCL 30 MG CAPSULE PO SCH (08:37)
[2022-04-19 08:44] VITALS: BP 105/70
[2022-04-19] MEDS: GABAPENTIN 300 MG CAPSULE PO PRN (16:51)
[2022-04-19] MEDS: MIRTAZAPINE 15 MG TABLET PO SCH (21:48)
[2022-04-19] MEDS: SENNOSIDES 8.6 MG TABLET PO SCH (21:49)
[2022-04-19] MEDS: CloZAPine 100 MG TABLET PO SCH (21:49)
[2022-04-19] MEDS: MELATONIN 5 MG TABLET PO SCH (21:49)
[2022-04-20 05:59] LABS: COVID AG,FIA SOURCE NASAL SWAB
[2022-04-20] MEDS: OMEGA-3/DHA/EPA/FISH OIL 1,000 MG CAPSULE PO SCH (08:32)
[2022-04-20] MEDS: MULTIVITAMINS WITH MINERALS, THERAPEUTIC TABLET PO SCH (08:33)
[2022-04-20] MEDS: DULoxetine HCL 30 MG CAPSULE PO SCH (08:33)
[2022-04-20] MEDS: NALTREXONE HCL 50 MG TABLET PO SCH (08:33)
[2022-04-20] MEDS: FAMOTIDINE 20 MG TABLET PO SCH ×2 (08:33→16:08)
[2022-04-20 09:19] VITALS: BP 134/93
[2022-04-20 16:15] VITALS: BP 97/70
[2022-04-20] MEDS: CloZAPine 100 MG TABLET PO SCH (21:00)
[2022-04-20] MEDS: MIRTAZAPINE 15 MG TABLET PO SCH (21:01)
[2022-04-20] MEDS: MELATONIN 5 MG TABLET PO SCH (21:01)
[2022-04-20] MEDS: SENNOSIDES 8.6 MG TABLET PO SCH (21:01)
[2022-04-21 08:25] VITALS: BP 116/75
[2022-04-21] MEDS: MULTIVITAMINS WITH MINERALS, THERAPEUTIC TABLET PO SCH (08:35)
[2022-04-21] MEDS: OMEGA-3/DHA/EPA/FISH OIL 1,000 MG CAPSULE PO SCH (08:36)
[2022-04-21] MEDS: NALTREXONE HCL 50 MG TABLET PO SCH (08:36)
[2022-04-21] MEDS: DULoxetine HCL 30 MG CAPSULE PO SCH (08:36)
[2022-04-21] MEDS: FAMOTIDINE 20 MG TABLET PO SCH ×2 (08:36→16:47)
[2022-04-21 16:21] VITALS: BP 104/73
[2022-04-21] MEDS: SENNOSIDES 8.6 MG TABLET PO SCH (21:01)
[2022-04-21] MEDS: CloZAPine 100 MG TABLET PO SCH (21:01)
[2022-04-21] MEDS: MELATONIN 5 MG TABLET PO SCH (21:01)
[2022-04-21] MEDS: MIRTAZAPINE 15 MG TABLET PO SCH (21:01)
[2022-04-22] MEDS: NALTREXONE HCL 50 MG TABLET PO SCH (08:19)
[2022-04-22] MEDS: FAMOTIDINE 20 MG TABLET PO SCH ×2 (08:19→15:55)
[2022-04-22] MEDS: OMEGA-3/DHA/EPA/FISH OIL 1,000 MG CAPSULE PO SCH (08:19)
[2022-04-22] MEDS: DULoxetine HCL 60 MG CAPSULE PO SCH (08:20)
[2022-04-22] MEDS: MULTIVITAMINS WITH MINERALS, THERAPEUTIC TABLET PO SCH (08:21)
[2022-04-22 09:49] VITALS: BP 104/76
[2022-04-22] MEDS: GABAPENTIN 300 MG CAPSULE PO PRN (15:55)
[2022-04-22 16:52] VITALS: BP 102/71
[2022-04-22] MEDS: CloZAPine 100 MG TABLET PO SCH (20:50)
[2022-04-22] MEDS: MELATONIN 5 MG TABLET PO SCH (20:50)
[2022-04-22] MEDS: SENNOSIDES 8.6 MG TABLET PO SCH (20:51)
[2022-04-22] MEDS: MIRTAZAPINE 15 MG TABLET PO SCH (20:51)
[2022-04-23] MEDS: NALTREXONE HCL 50 MG TABLET PO SCH (08:28)
[2022-04-23] MEDS: DULoxetine HCL 60 MG CAPSULE PO SCH (08:28)
[2022-04-23] MEDS: FAMOTIDINE 20 MG TABLET PO SCH ×2 (08:29→16:11)
[2022-04-23] MEDS: MULTIVITAMINS WITH MINERALS, THERAPEUTIC TABLET PO SCH (08:29)
[2022-04-23] MEDS: OMEGA-3/DHA/EPA/FISH OIL 1,000 MG CAPSULE PO SCH (08:29)
[2022-04-23 08:46] VITALS: BP 108/64
[2022-04-23] MEDS: GABAPENTIN 300 MG CAPSULE PO PRN (13:40)
[2022-04-23] MEDS: CloZAPine 100 MG TABLET PO SCH (20:38)
[2022-04-23] MEDS: MELATONIN 5 MG TABLET PO SCH (20:39)
[2022-04-23] MEDS: MIRTAZAPINE 15 MG TABLET PO SCH (20:39)
[2022-04-23] MEDS: SENNOSIDES 8.6 MG TABLET PO SCH (20:39)
[2022-04-24 07:49] LABS: BASOPHILS % (AUTO) 0.6 % (0.0-2.0); EOSINOPHILS % (AUTO) 7.1 % (1.0-6.0); HEMATOCRIT 37.7 % (41-53); HEMOGLOBIN 12.7 g/dL (13.5-17.5); LYMPHOCYTES % (AUTO) 39.8 % (22.0-44.0); MEAN CORPUSCULAR HEMOGLOBIN 30.7 pg (26.0-34.0); MEAN CORPUSCULAR HGB CONC 33.8 G/dL (31.0-37.0); MEAN CORPUSCULAR VOLUME 91 fL (80-100); MONOCYTES # (AUTO) 0.7 K/uL (0.1-1.0); MONOCYTES % (AUTO) 14.3 % (2.0-9.0); NEUTROPHILS # (AUTO) 1.9 K/uL (1.8-7.7); NEUTROPHILS % (AUTO) 38.2 % (40.0-70.0); PLATELET COUNT (AUTO) 211 K/uL (150-450); RED BLOOD CELL COUNT(AUTO) 4.14 MIL/uL (4.50-5.90); RED CELL DISTRIBUTION WIDTH 13.6 % (11.5-14.5)
[2022-04-24] MEDS: OMEGA-3/DHA/EPA/FISH OIL 1,000 MG CAPSULE PO SCH (08:16)
[2022-04-24] MEDS: NALTREXONE HCL 50 MG TABLET PO SCH (08:17)
[2022-04-24] MEDS: FAMOTIDINE 20 MG TABLET PO SCH ×2 (08:17→17:09)
[2022-04-24] MEDS: DULoxetine HCL 60 MG CAPSULE PO SCH (08:17)
[2022-04-24] MEDS: MULTIVITAMINS WITH MINERALS, THERAPEUTIC TABLET PO SCH (08:18)
[2022-04-24 10:33] VITALS: BP 102/62
[2022-04-24 16:47] VITALS: BP 104/70
[2022-04-24] MEDS: GABAPENTIN 300 MG CAPSULE PO PRN (18:37)
[2022-04-24] MEDS: MELATONIN 5 MG TABLET PO SCH (20:34)
[2022-04-24] MEDS: SENNOSIDES 8.6 MG TABLET PO SCH (20:34)
[2022-04-24] MEDS: CloZAPine 100 MG TABLET PO SCH (20:34)
[2022-04-24] MEDS: MIRTAZAPINE 15 MG TABLET PO SCH (20:34)
[2022-04-25] MEDS: DULoxetine HCL 60 MG CAPSULE PO SCH (09:18)
[2022-04-25] MEDS: FAMOTIDINE 20 MG TABLET PO SCH ×2 (09:19→16:47)
[2022-04-25] MEDS: OMEGA-3/DHA/EPA/FISH OIL 1,000 MG CAPSULE PO SCH (09:19)
[2022-04-25] MEDS: MULTIVITAMINS WITH MINERALS, THERAPEUTIC TABLET PO SCH (09:19)
[2022-04-25] MEDS: NALTREXONE HCL 50 MG TABLET PO SCH (09:19)
[2022-04-25 11:02] VITALS: BP 104/63
[2022-04-25] MEDS: GABAPENTIN 300 MG CAPSULE PO PRN (18:05)
[2022-04-25 18:09] VITALS: BP 102/72
[2022-04-25] MEDS: SENNOSIDES 8.6 MG TABLET PO SCH (20:42)
[2022-04-25] MEDS: CloZAPine 100 MG TABLET PO SCH (20:42)
[2022-04-25] MEDS: MIRTAZAPINE 15 MG TABLET PO SCH (20:42)
[2022-04-25] MEDS: MELATONIN 5 MG TABLET PO SCH (20:42)
[2022-04-26 08:03] VITALS: BP 102/65
[2022-04-26] MEDS: FAMOTIDINE 20 MG TABLET PO SCH ×2 (09:55→17:25)
[2022-04-26] MEDS: OMEGA-3/DHA/EPA/FISH OIL 1,000 MG CAPSULE PO SCH (09:55)
[2022-04-26] MEDS: NALTREXONE HCL 50 MG TABLET PO SCH (09:56)
[2022-04-26] MEDS: DULoxetine HCL 60 MG CAPSULE PO SCH (09:56)
[2022-04-26] MEDS: MULTIVITAMINS WITH MINERALS, THERAPEUTIC TABLET PO SCH (09:58)
[2022-04-26] MEDS: GABAPENTIN 300 MG CAPSULE PO PRN (14:29)
[2022-04-26] MEDS: CloZAPine 100 MG TABLET PO SCH (20:06)
[2022-04-26] MEDS: SENNOSIDES 8.6 MG TABLET PO SCH (20:07)
[2022-04-26] MEDS: MELATONIN 5 MG TABLET PO SCH (20:07)
[2022-04-26] MEDS: MIRTAZAPINE 15 MG TABLET PO SCH (20:07)
[2022-04-27 07:39] LABS: COVID AG,FIA SOURCE NASAL SWAB
[2022-04-27] MEDS: FAMOTIDINE 20 MG TABLET PO SCH ×2 (08:37→16:37)
[2022-04-27] MEDS: OMEGA-3/DHA/EPA/FISH OIL 1,000 MG CAPSULE PO SCH (08:37)
[2022-04-27] MEDS: MULTIVITAMINS WITH MINERALS, THERAPEUTIC TABLET PO SCH (08:37)
[2022-04-27] MEDS: DULoxetine HCL 60 MG CAPSULE PO SCH (08:38)
[2022-04-27] MEDS: NALTREXONE HCL 50 MG TABLET PO SCH (08:38)
[2022-04-27] MEDS: TAMSULOSIN HCL 0.4 MG CAPSULE PO SCH (08:38)
[2022-04-27 10:45] VITALS: BP 107/69
[2022-04-27 16:25] VITALS: BP 116/72
[2022-04-27] MEDS: GABAPENTIN 300 MG CAPSULE PO PRN (16:37)
[2022-04-27] MEDS: CloZAPine 100 MG TABLET PO SCH (20:38)
[2022-04-27] MEDS: MIRTAZAPINE 15 MG TABLET PO SCH (20:39)
[2022-04-27] MEDS: MELATONIN 5 MG TABLET PO SCH (20:39)
[2022-04-27] MEDS: SENNOSIDES 8.6 MG TABLET PO SCH (20:39)
[2022-04-28] MEDS: MULTIVITAMINS WITH MINERALS, THERAPEUTIC TABLET PO SCH (09:13)
[2022-04-28] MEDS: TAMSULOSIN HCL 0.4 MG CAPSULE PO SCH (09:13)
[2022-04-28] MEDS: DULoxetine HCL 60 MG CAPSULE PO SCH (09:13)
[2022-04-28] MEDS: NALTREXONE HCL 50 MG TABLET PO SCH (09:13)
[2022-04-28] MEDS: OMEGA-3/DHA/EPA/FISH OIL 1,000 MG CAPSULE PO SCH (09:14)
[2022-04-28] MEDS: FAMOTIDINE 20 MG TABLET PO SCH ×2 (09:14→16:10)
[2022-04-28 09:21] VITALS: BP 119/84
[2022-04-28] MEDS: GABAPENTIN 300 MG CAPSULE PO PRN (16:09)
[2022-04-28 16:43] VITALS: BP 98/71
[2022-04-28] MEDS: SENNOSIDES 8.6 MG TABLET PO SCH (20:15)
[2022-04-28] MEDS: MELATONIN 5 MG TABLET PO SCH (20:15)
[2022-04-28] MEDS: CloZAPine 100 MG TABLET PO SCH (20:16)
[2022-04-28] MEDS: MIRTAZAPINE 15 MG TABLET PO SCH (20:16)
[2022-04-28 21:07] VITALS: BP 107/73
[2022-04-28] MEDS: ZOLPIDEM TARTRATE 10 MG TABLET PO PRN (22:13)
[2022-04-29] MEDS: TAMSULOSIN HCL 0.4 MG CAPSULE PO SCH (08:32)
[2022-04-29] MEDS: OMEGA-3/DHA/EPA/FISH OIL 1,000 MG CAPSULE PO SCH (08:32)
[2022-04-29] MEDS: FAMOTIDINE 20 MG TABLET PO SCH ×2 (08:33→16:21)
[2022-04-29] MEDS: DULoxetine HCL 60 MG CAPSULE PO SCH (08:33)
[2022-04-29] MEDS: NALTREXONE HCL 50 MG TABLET PO SCH (08:33)
[2022-04-29] MEDS: MULTIVITAMINS WITH MINERALS, THERAPEUTIC TABLET PO SCH (08:33)
[2022-04-29 09:06] VITALS: BP 123/80
[2022-04-29] MEDS: GABAPENTIN 300 MG CAPSULE PO PRN (16:21)
[2022-04-29] MEDS: SENNOSIDES 8.6 MG TABLET PO SCH (20:20)
[2022-04-29] MEDS: CloZAPine 100 MG TABLET PO SCH (20:20)
[2022-04-29] MEDS: MELATONIN 5 MG TABLET PO SCH (20:20)
[2022-04-29] MEDS: MIRTAZAPINE 15 MG TABLET PO SCH (20:20)
[2022-04-29] MEDS: ZOLPIDEM TARTRATE 10 MG TABLET PO PRN (21:16)
[2022-04-30] MEDS: TAMSULOSIN HCL 0.4 MG CAPSULE PO SCH (08:25)
[2022-04-30] MEDS: DULoxetine HCL 60 MG CAPSULE PO SCH (08:25)
[2022-04-30] MEDS: OMEGA-3/DHA/EPA/FISH OIL 1,000 MG CAPSULE PO SCH (08:25)
[2022-04-30] MEDS: FAMOTIDINE 20 MG TABLET PO SCH ×2 (08:26→17:12)
[2022-04-30] MEDS: NALTREXONE HCL 50 MG TABLET PO SCH (08:26)
[2022-04-30] MEDS: MULTIVITAMINS WITH MINERALS, THERAPEUTIC TABLET PO SCH (08:27)
[2022-04-30 09:05] VITALS: BP 106/72
[2022-04-30] MEDS: GABAPENTIN 300 MG CAPSULE PO PRN (13:41)
[2022-04-30 16:31] VITALS: BP 112/73
[2022-04-30] MEDS: CloZAPine 100 MG TABLET PO SCH (20:17)
[2022-04-30] MEDS: MELATONIN 5 MG TABLET PO SCH (20:17)
[2022-04-30] MEDS: SENNOSIDES 8.6 MG TABLET PO SCH (20:18)
[2022-04-30] MEDS: MIRTAZAPINE 15 MG TABLET PO SCH (20:18)
[2022-05-01 07:38] LABS: BASOPHILS % (AUTO) 0.6 % (0.0-2.0); EOSINOPHILS % (AUTO) 7.6 % (1.0-6.0); HEMATOCRIT 38.4 % (41-53); HEMOGLOBIN 12.6 g/dL (13.5-17.5); LYMPHOCYTES # (AUTO) 2.1 K/uL (1.0-4.8); LYMPHOCYTES % (AUTO) 42.1 % (22.0-44.0); MEAN CORPUSCULAR HEMOGLOBIN 30.3 pg (26.0-34.0); MEAN CORPUSCULAR HGB CONC 32.9 G/dL (31.0-37.0); MEAN CORPUSCULAR VOLUME 92 fL (80-100); MONOCYTES # (AUTO) 0.6 K/uL (0.1-1.0); MONOCYTES % (AUTO) 12.5 % (2.0-9.0); NEUTROPHILS # (AUTO) 1.8 K/uL (1.8-7.7); NEUTROPHILS % (AUTO) 37.2 % (40.0-70.0); PLATELET COUNT (AUTO) 201 K/uL (150-450); RED BLOOD CELL COUNT(AUTO) 4.17 MIL/uL (4.50-5.90); RED CELL DISTRIBUTION WIDTH 13.3 % (11.5-14.5)
[2022-05-01] MEDS: OMEGA-3/DHA/EPA/FISH OIL 1,000 MG CAPSULE PO SCH (08:03)
[2022-05-01] MEDS: DULoxetine HCL 60 MG CAPSULE PO SCH (08:03)
[2022-05-01] MEDS: FAMOTIDINE 20 MG TABLET PO SCH ×2 (08:03→17:13)
[2022-05-01] MEDS: TAMSULOSIN HCL 0.4 MG CAPSULE PO SCH (08:03)
[2022-05-01] MEDS: NALTREXONE HCL 50 MG TABLET PO SCH (08:04)
[2022-05-01] MEDS: MULTIVITAMINS WITH MINERALS, THERAPEUTIC TABLET PO SCH (08:06)
[2022-05-01 09:41] VITALS: BP 128/89
[2022-05-01] MEDS: GABAPENTIN 300 MG CAPSULE PO PRN (11:50)
[2022-05-01 16:57] VITALS: BP 109/71
[2022-05-01] MEDS: MIRTAZAPINE 15 MG TABLET PO SCH (20:09)
[2022-05-01] MEDS: MELATONIN 5 MG TABLET PO SCH (20:09)
[2022-05-01] MEDS: SENNOSIDES 8.6 MG TABLET PO SCH (20:09)
[2022-05-01] MEDS: CloZAPine 100 MG TABLET PO SCH (20:09)
[2022-05-01] MEDS: ZOLPIDEM TARTRATE 10 MG TABLET PO PRN (22:45)
[2022-05-02 08:00] VITALS: BP 111/76
[2022-05-02 09:00] VITALS: BP 111/63
[2022-05-02] MEDS: OMEGA-3/DHA/EPA/FISH OIL 1,000 MG CAPSULE PO SCH (10:13)
[2022-05-02] MEDS: FAMOTIDINE 20 MG TABLET PO SCH ×2 (10:13→16:18)
[2022-05-02] MEDS: MULTIVITAMINS WITH MINERALS, THERAPEUTIC TABLET PO SCH (10:13)
[2022-05-02] MEDS: TAMSULOSIN HCL 0.4 MG CAPSULE PO SCH (10:13)
[2022-05-02] MEDS: DULoxetine HCL 60 MG CAPSULE PO SCH (10:13)
[2022-05-02] MEDS: NALTREXONE HCL 50 MG TABLET PO SCH (10:14)
[2022-05-02] MEDS: MIRTAZAPINE 15 MG TABLET PO SCH (21:01)
[2022-05-02] MEDS: SENNOSIDES 8.6 MG TABLET PO SCH (21:03)
[2022-05-02] MEDS: CloZAPine 100 MG TABLET PO SCH (21:03)
[2022-05-02] MEDS: MELATONIN 5 MG TABLET PO SCH (21:04)
[2022-05-03 08:13] VITALS: BP 100/60
[2022-05-03] MEDS: OMEGA-3/DHA/EPA/FISH OIL 1,000 MG CAPSULE PO SCH (08:34)
[2022-05-03] MEDS: TAMSULOSIN HCL 0.4 MG CAPSULE PO SCH (08:34)
[2022-05-03] MEDS: DULoxetine HCL 60 MG CAPSULE PO SCH (08:34)
[2022-05-03] MEDS: FAMOTIDINE 20 MG TABLET PO SCH ×2 (08:35→16:12)
[2022-05-03] MEDS: MULTIVITAMINS WITH MINERALS, THERAPEUTIC TABLET PO SCH (08:35)
[2022-05-03] MEDS: NALTREXONE HCL 50 MG TABLET PO SCH (08:35)
[2022-05-03] MEDS: GABAPENTIN 300 MG CAPSULE PO PRN (15:54)
[2022-05-03 16:43] VITALS: BP 106/75
[2022-05-03] MEDS: SENNOSIDES 8.6 MG TABLET PO SCH (21:17)
[2022-05-03] MEDS: CloZAPine 100 MG TABLET PO SCH (21:17)
[2022-05-03] MEDS: MIRTAZAPINE 15 MG TABLET PO SCH (21:17)
[2022-05-03] MEDS: MELATONIN 5 MG TABLET PO SCH (21:18)
[2022-05-04 07:41] LABS: COVID AG,FIA SOURCE NASAL SWAB
[2022-05-04] MEDS: MULTIVITAMINS WITH MINERALS, THERAPEUTIC TABLET PO SCH (08:33)
[2022-05-04] MEDS: FAMOTIDINE 20 MG TABLET PO SCH ×2 (08:34→16:39)
[2022-05-04] MEDS: DULoxetine HCL 60 MG CAPSULE PO SCH (08:34)
[2022-05-04] MEDS: NALTREXONE HCL 50 MG TABLET PO SCH (08:34)
[2022-05-04] MEDS: TAMSULOSIN HCL 0.4 MG CAPSULE PO SCH (08:34)
[2022-05-04] MEDS: OMEGA-3/DHA/EPA/FISH OIL 1,000 MG CAPSULE PO SCH (08:34)
[2022-05-04 08:36] VITALS: BP 99/64
[2022-05-04] MEDS: GABAPENTIN 300 MG CAPSULE PO PRN (11:48)
[2022-05-04 16:23] VITALS: BP 121/69
[2022-05-04] MEDS: MELATONIN 5 MG TABLET PO SCH (20:39)
[2022-05-04] MEDS: SENNOSIDES 8.6 MG TABLET PO SCH (20:39)
[2022-05-04] MEDS: MIRTAZAPINE 15 MG TABLET PO SCH (20:39)
[2022-05-04] MEDS: CloZAPine 100 MG TABLET PO SCH (20:40)
[2022-05-05 08:40] VITALS: BP 113/78
[2022-05-05] MEDS: MULTIVITAMINS WITH MINERALS, THERAPEUTIC TABLET PO SCH (09:11)
[2022-05-05] MEDS: TAMSULOSIN HCL 0.4 MG CAPSULE PO SCH (09:12)
[2022-05-05] MEDS: NALTREXONE HCL 50 MG TABLET PO SCH (09:12)
[2022-05-05] MEDS: FAMOTIDINE 20 MG TABLET PO SCH ×2 (09:12→16:51)
[2022-05-05] MEDS: OMEGA-3/DHA/EPA/FISH OIL 1,000 MG CAPSULE PO SCH (09:12)
[2022-05-05] MEDS: DULoxetine HCL 60 MG CAPSULE PO SCH (09:12)
[2022-05-05] MEDS: GABAPENTIN 300 MG CAPSULE PO PRN (12:15)
[2022-05-05 16:23] VITALS: BP 102/71
[2022-05-05] MEDS ORDERED: MIRT-89 PO (16:24)
[2022-05-05] MEDS ORDERED: NALT50TA PO (16:24)
[2022-05-05] MEDS ORDERED: DULO-113 PO (16:24)
[2022-05-05] MEDS ORDERED: SENN-187 PO (16:24)
[2022-05-05] MEDS ORDERED: OMEG-135 PO (16:24)
[2022-05-05] MEDS ORDERED: MELA5TAB40 PO (16:24)
[2022-05-05] MEDS ORDERED: CLOZ100T11 PO (16:24)
[2022-05-05] MEDS: SENNOSIDES 8.6 MG TABLET PO SCH (20:40)
[2022-05-05] MEDS: CloZAPine 100 MG TABLET PO SCH (20:41)
[2022-05-05] MEDS: MIRTAZAPINE 15 MG TABLET PO SCH (20:41)
[2022-05-05] MEDS: MELATONIN 5 MG TABLET PO SCH (20:41)
[2022-05-05] MEDS: ZOLPIDEM TARTRATE 10 MG TABLET PO PRN (21:12)
[2022-05-06 08:30] VITALS: BP 124/86
[2022-05-06] MEDS: TAMSULOSIN HCL 0.4 MG CAPSULE PO SCH (08:34)
[2022-05-06] MEDS: MULTIVITAMINS WITH MINERALS, THERAPEUTIC TABLET PO SCH (08:34)
[2022-05-06] MEDS: NALTREXONE HCL 50 MG TABLET PO SCH (08:35)
[2022-05-06] MEDS: DULoxetine HCL 60 MG CAPSULE PO SCH (08:35)
[2022-05-06] MEDS: FAMOTIDINE 20 MG TABLET PO SCH (08:35)
[2022-05-06] MEDS: OMEGA-3/DHA/EPA/FISH OIL 1,000 MG CAPSULE PO SCH (08:35)
[2022-05-06] MEDS: GABAPENTIN 300 MG CAPSULE PO PRN (12:38)
== END 2022-05-06 15:00 | disposition home or self-care (01) | DRG 885 ==
LOC: 3EX 23:15 → UNDOADMIN 23:15 → 3EX 04-20 19:22
PROVIDERS: ADMIT Psychiatry & Neurology Psychiatry; ATTEND Psychiatry & Neurology Psychiatry
DX: F25.1 Schizoaffective disorder, depressive type (principal); F33.2 Major depressive disorder, recurrent severe without psychotic features; R45.851 Suicidal ideations; Z20.822 Contact with and (suspected) exposure to COVID-19; F41.9 Anxiety disorder, unspecified; G62.9 Polyneuropathy, unspecified; I95.1 Orthostatic hypotension; K11.7 Disturbances of salivary secretion; K52.9 Noninfective gastroenteritis and colitis, unspecified; R32 Unspecified urinary incontinence; Z55.9 Problems related to education and literacy, unspecified; Z59.00 Homelessness unspecified; Z63.9 Problem related to primary support group, unspecified; Z65.3 Problems related to other legal circumstances; Z81.8 Family history of other mental and behavioral disorders; Z86.73 Personal history of transient ischemic attack (TIA), and cerebral infarction without residual deficits; Z91.14 Patient's other noncompliance with medication regimen; Z74.01 Bed confinement status; Z79.899 Other long term (current) drug therapy
CPT/HCPCS: 80061; 80159; 83036; 84153; 84439; 84443; 85025; 86592; 87081; 97161; G0378; Q9967

== ENCOUNTER → 2022-05-14 | Outpatient (CLI) | payer MEDICARE ==
[~2022-05-14] MED LIST changes: -BUPR-50 PO; +CLOZ100T11 PO; -DOXY-354 PO; +DULO-113 PO; -FAMO20 PO; +MELA5TAB40 PO; +MIRT-89 PO; +NALT50TA PO; +OMEG-135 PO; -QUET100T PO; -QUET200T PO; -QUET200T30 PO; +SENN-187 PO; -SERT-158 PO; -SERT-439 PO
[2022-05-14 15:21] LABS: BASOPHILS % (AUTO) 0.5 % (0.0-2.0); EOSINOPHILS % (AUTO) 2.4 % (1.0-6.0); HEMATOCRIT 42.9 % (41-53); HEMOGLOBIN 14.6 g/dL (13.5-17.5); LYMPHOCYTES # (AUTO) 1.5 K/uL (1.0-4.8); LYMPHOCYTES % (AUTO) 30.3 % (22.0-44.0); MEAN CORPUSCULAR HEMOGLOBIN 31.1 pg (26.0-34.0); MEAN CORPUSCULAR HGB CONC 34.1 G/dL (31.0-37.0); MEAN CORPUSCULAR VOLUME 91 fL (80-100); MONOCYTES # (AUTO) 0.6 K/uL (0.1-1.0); MONOCYTES % (AUTO) 11.1 % (2.0-9.0); NEUTROPHILS # (AUTO) 2.8 K/uL (1.8-7.7); NEUTROPHILS % (AUTO) 55.7 % (40.0-70.0); PLATELET COUNT (AUTO) 201 K/uL (150-450); RED BLOOD CELL COUNT(AUTO) 4.71 MIL/uL (4.50-5.90); RED CELL DISTRIBUTION WIDTH 13.1 % (11.5-14.5)
== END | disposition home or self-care (01) ==
LOC: LABMN 13:06
PROVIDERS: ATTEND Psychiatry & Neurology Psychiatry
DX: F25.0 Schizoaffective disorder, bipolar type (principal)
CPT/HCPCS: 80159; 85025

== ENCOUNTER → 2022-05-18 | Outpatient (CLI) | payer MEDICARE ==
[~2022-05-18] MED LIST changes: +GABA-1181 PO; +TAMS-13 PO; +ZOLP-280 PO
[2022-05-18 15:21] LABS: BASOPHILS % (AUTO) 0.1 % (0.0-2.0); EOSINOPHILS % (AUTO) 0.3 % (1.0-6.0); HEMATOCRIT 44.2 % (41-53); HEMOGLOBIN 14.5 g/dL (13.5-17.5); LYMPHOCYTES % (AUTO) 13.2 % (22.0-44.0); MEAN CORPUSCULAR HEMOGLOBIN 30.4 pg (26.0-34.0); MEAN CORPUSCULAR HGB CONC 32.7 G/dL (31.0-37.0); MEAN CORPUSCULAR VOLUME 93 fL (80-100); MONOCYTES # (AUTO) 0.3 K/uL (0.1-1.0); MONOCYTES % (AUTO) 4.8 % (2.0-9.0); NEUTROPHILS # (AUTO) 5.9 K/uL (1.8-7.7); NEUTROPHILS % (AUTO) 81.6 % (40.0-70.0); PLATELET COUNT (AUTO) 176 K/uL (150-450); RED BLOOD CELL COUNT(AUTO) 4.75 MIL/uL (4.50-5.90); RED CELL DISTRIBUTION WIDTH 13.2 % (11.5-14.5)
== END | disposition home or self-care (01) ==
LOC: LABMN 18:52
PROVIDERS: ATTEND Psychiatry & Neurology Psychiatry
DX: F25.1 Schizoaffective disorder, depressive type (principal)
CPT/HCPCS: 85025

== ENCOUNTER → 2022-06-08 | Outpatient (CLI) | payer MEDICARE ==
[~2022-06-08] MED LIST changes: +CEFD300C18 PO; -NALT50TA PO; -OMEG-135 PO; -SENN-187 PO
[2022-06-08 14:17] LABS: BASOPHILS % (AUTO) 0.8 % (0.0-2.0); EOSINOPHILS % (AUTO) 4.1 % (1.0-6.0); HEMATOCRIT 40.5 % (41-53); HEMOGLOBIN 13.5 g/dL (13.5-17.5); LYMPHOCYTES # (AUTO) 1.8 K/uL (1.0-4.8); LYMPHOCYTES % (AUTO) 38.4 % (22.0-44.0); MEAN CORPUSCULAR HEMOGLOBIN 30.5 pg (26.0-34.0); MEAN CORPUSCULAR HGB CONC 33.3 G/dL (31.0-37.0); MEAN CORPUSCULAR VOLUME 92 fL (80-100); MONOCYTES # (AUTO) 0.6 K/uL (0.1-1.0); MONOCYTES % (AUTO) 12.9 % (2.0-9.0); NEUTROPHILS # (AUTO) 2.1 K/uL (1.8-7.7); NEUTROPHILS % (AUTO) 43.8 % (40.0-70.0); PLATELET COUNT (AUTO) 276 K/uL (150-450); RED BLOOD CELL COUNT(AUTO) 4.42 MIL/uL (4.50-5.90); RED CELL DISTRIBUTION WIDTH 13.6 % (11.5-14.5)
== END | disposition home or self-care (01) ==
LOC: LABMN 17:19
PROVIDERS: ATTEND Psychiatry & Neurology Psychiatry
DX: F25.1 Schizoaffective disorder, depressive type (principal)
CPT/HCPCS: 85025